=== PATIENT | male | born 1940 | race African-American/Black ===

== ENCOUNTER 2019-10-13 01:36 | Inpatient (IN) | payer MEDICARE ==
[~2019-10-13] VITALS: Ht 175.3 cm; Wt 98.4 kg
[2019-10-13] VITALS (14 sets, daily range): BP systolic 101–133; BP diastolic 56–102
[~2019-10-13 01:36] MED LIST: ALLO100T PO; AMLO10TA80 PO; FURO20TA4 PO; LISI10TA5 PO; PANT40TA4 PO; POTA20TA12 PO; SIMV-43 PO
[2019-10-13 02:31] LABS: BASOPHILS % 0.5 % (0.0-2.0); EOSINOPHILS % 2.6 % (0.0-5.0); HEMATOCRIT. 40.1 % (42.0-52.0); HEMOGLOBIN. 12.8 g/dL (14.0-18.0); LYMPHOCYTES % 24.4 % (20.0-50.0); MEAN CORPUSCULAR HEMOGLOBIN 28.1 pg (28.0-32.0); MEAN CORPUSCULAR VOLUME 87.8 fL (80.0-94.0); MEAN PLATELET VOLUME 8.5 fl (7.4-10.4); MONOCYTES % 10.1 % (2.0-8.0); NEUTROPHILS % 62.4 % (40.0-76.0); PLATELET 153 x1000/uL (130-400); RED BLOOD CELL COUNT 4.56 mill/uL (4.7-6.1); RED CELL DISTRIBUTION WIDTH 15.9 % (11.6-14.6)
[2019-10-13 02:34] LABS: CHLORIDE 107 mEq/L (98-107)
[2019-10-13 02:39] LABS: INR 1.2; PARTIAL THROMBOPLASTIN TIME 25.5 sec (23.4-31.0); PROTHROMBIN TIME 12.8 sec (9.6-11.0)
[2019-10-13] MEDS ORDERED: FAMOTIDINE 20MG/2ML VIAL IV ONE (04:15)
[2019-10-13 05:58] LABS: CLARITY URINE CLOUDY (CLEAR); COLOR URINE YELLOW (YELLOW); KETONES URINE NEGATIVE (NEGATIVE); LEUKOCYTE ESTERASE URINE 3+ (NEGATIVE); NITRITE URINE POSITIVE (NEGATIVE); OCCULT BLOOD URINE 2+ (NEGATIVE); PH URINE 5.5 (4.5-8.0); PROTEIN URINE 2+ (NEGATIVE); SPECIFIC GRAVITY URINE 1.019 (1.005-1.030); UROBILINOGEN URINE 0.2 E.U./dL (0.2-1.0)
[2019-10-13] MEDS ORDERED: HYDROCODONE/ACETAMINOPHEN 10/325MG TABLET PO PRN (07:45)
[2019-10-13] MEDS ORDERED: MAGNESIUM/ALUMINUM HYDROXIDE/SIMETHICONE 30ML UDC PO PRN (07:45)
[2019-10-13] MEDS ORDERED: IPRATROPIUM/ALBUTEROL 0.5-3(2.5)MG/3ML NEB HHN PRN (07:45)
[2019-10-13] MEDS ORDERED: LEVOFLOXACIN 500MG PREMIX 100 ML IV SCH ×3 (07:45→11:00)
[2019-10-13] MEDS ORDERED: GUAIFENESIN 200MG/10ML SUGAR FREE UDC PO PRN (07:45)
[2019-10-13] MEDS ORDERED: HYDRALAZINE 20MG/ML VIAL IV PRN (07:45)
[2019-10-13] MEDS ORDERED: MORPHINE SULFATE 2 MG/ML CPJ (NOT FOR IM USE) IV PRN (07:45)
[2019-10-13] MEDS ORDERED: CLONIDINE 0.1MG TABLET PO PRN (07:45)
[2019-10-13] MEDS ORDERED: DOCUSATE SODIUM 100MG CAPSULE PO PRN (07:45)
[2019-10-13] MEDS ORDERED: DIPHENHYDRAMINE 50MG/ML VIAL IV PRN (07:45)
[2019-10-13] MEDS ORDERED: LORAZEPAM 2MG/ML CPJ IV PRN (07:45)
[2019-10-13] MEDS ORDERED: ONDANSETRON HCL 4MG/2ML INJ IV PRN (07:45)
[2019-10-13] MEDS ORDERED: SODIUM CHLORIDE 0.45% 1,000 ML IV SCH (08:00)
[2019-10-13] MEDS ORDERED: METRONIDAZOLE 500 MG PREMIX 100 ML IV SCH (08:00)
[2019-10-13] MEDS ORDERED: HEPARIN 1000 UNITS/ML 10ML ONE (09:56)
[2019-10-13 14:20] LABS: T4 FREE 1.17 ng/dL (0.76-1.46)
[2019-10-13] MEDS: SODIUM CHLORIDE 0.9% INJ 3ML FLUSH IVF SCH ×2 (15:32→23:48)
[2019-10-13] MEDS: METRONIDAZOLE 500 MG PREMIX 100 ML IV SCH ×2 (15:32→18:00)
[2019-10-13] MEDS: LEVOFLOXACIN 250MG PREMIX 50 ML IV SCH (15:33)
[2019-10-13] MEDS: DEXT 5%/0.45% NACL 1000ML 1,000 ML IV SCH ×2 (15:36→23:48)
[2019-10-13 15:52] LABS: HEMATOCRIT 30.7 % (42.0-52.0); HEMOGLOBIN 9.9 g/dL (14.0-18.0)
[2019-10-13 16:15] LABS: CREATINE KINASE 92 IU/L (39-308)
[2019-10-13 16:18] LABS: CREATINE KINASE MB FRACTION 2.1 ng/mL (0.5-3.6)
[2019-10-13 17:56] LABS: TOTAL IRON BINDING CAPACITY 345 ug/dL (250-450)
[2019-10-13 18:34] LABS: FOLIC ACID (FOLATE) SERUM 10.6 ng/mL (>5.38)
[2019-10-14] VITALS (19 sets, daily range): BP systolic 105–147; BP diastolic 62–97
[2019-10-14 00:35] LABS: HEMATOCRIT 29.8 % (42.0-52.0); HEMOGLOBIN 10.1 g/dL (14.0-18.0)
[2019-10-14] MEDS: METRONIDAZOLE 500 MG PREMIX 100 ML IV SCH ×3 (02:16→17:46)
[2019-10-14 06:15] LABS: BASOPHILS % 0.3 % (0.0-2.0); EOSINOPHILS % 0.3 % (0.0-5.0); HEMATOCRIT. 28.5 % (42.0-52.0); HEMOGLOBIN. 9.4 g/dL (14.0-18.0); MEAN CORPUSCULAR HEMOGLOBIN 28.4 pg (28.0-32.0); MEAN CORPUSCULAR VOLUME 85.9 fL (80.0-94.0); MEAN PLATELET VOLUME 8.8 fl (7.4-10.4); MONOCYTES % 12.2 % (2.0-8.0); NEUTROPHILS % 74.2 % (40.0-76.0); PLATELET 87 x1000/uL (130-400); RED BLOOD CELL COUNT 3.32 mill/uL (4.7-6.1); RED CELL DISTRIBUTION WIDTH 15.9 % (11.6-14.6)
[2019-10-14 06:50] LABS: CHLORIDE 115 mEq/L (98-107)
[2019-10-14 06:57] LABS: CREATINE KINASE 125 IU/L (39-308)
[2019-10-14 07:00] LABS: CREATINE KINASE MB FRACTION 3.3 ng/mL (0.5-3.6)
[2019-10-14] MEDS: LEVOFLOXACIN 250MG PREMIX 50 ML IV SCH (10:07)
[2019-10-14] MEDS: SODIUM CHLORIDE 0.9% INJ 3ML FLUSH IVF SCH ×3 (10:08→22:00)
[2019-10-14] MEDS ORDERED: LEVOFLOXACIN 250MG PREMIX 50 ML IV SCH (11:00)
[2019-10-14 11:20] LABS: *AMPHETAMINES SCREEN URINE NEGATIVE (NEGATIVE); *BARBITURATES SCREEN URINE NEGATIVE (NEGATIVE); *COCAINE SCREEN URINE NEGATIVE (NEGATIVE); METHADONE URINE SCREEN NEGATIVE (NEGATIVE); OPIATES URINE SCREEN NEGATIVE (NEGATIVE)
[2019-10-14 11:21] LABS: CANNABINOID URINE SCREEN PRESUMTIVE POSITIVE (NEGATIVE); PHENCYCLIDINE URINE SCREEN NEGATIVE (NEGATIVE)
[2019-10-14 11:22] LABS: *BENZODIAZEPINES SCREEN URINE NEGATIVE (NEGATIVE)
[2019-10-14 12:31] LABS: HEMATOCRIT 24.6 % (42.0-52.0); HEMOGLOBIN 8.1 g/dL (14.0-18.0)
[2019-10-14] MEDS: DEXT 5%/0.45% NACL 1000ML 1,000 ML IV SCH (14:01)
[2019-10-14] MEDS ORDERED: CALCIUM GLUCONATE 1,000 MG in DEXT 5% WATER 90 ML IV NR (15:30)
[2019-10-14 15:52] LABS: BG BASE EXCESS -2.1 mmol/L (-2.0-2.0); BG CARBOXYHEMOGLOBIN 1.1 % (0.5-1.5); BG DEOXYHEMOGLOBIN 3.9 % (0.0-5.0); BG FRACTION INSPIRED OXYGEN 21; BG HCO3 ACT 22.4 mmol/L (22.0-26.0); BG METHEMOGLOBIN 0.3 % (0.0-1.5); BG OXYHEMOGLOBIN 94.7 % (94.0-97.0); BG PCO2 36.9 mmHg (35.0-45.0); BG PH 7.401 (7.350-7.450); BG PO2 87.2 mmHg (75.0-100.0); BG SAMPLE SITE RIGHT RADIAL; BG TOTAL HEMOGLOBIN 8.2 g/dL (12.0-18.0); BG VENT MODE ROOM AIR
[2019-10-14 20:29] LABS: HEMATOCRIT 24.9 % (42.0-52.0); HEMOGLOBIN 8.3 g/dL (14.0-18.0)
[2019-10-15] VITALS (12 sets, daily range): BP systolic 113–158; BP diastolic 70–89
[2019-10-15 01:30] LABS: HEMATOCRIT 28.5 % (42.0-52.0); HEMOGLOBIN 9.5 g/dL (14.0-18.0)
[2019-10-15] MEDS: METRONIDAZOLE 500 MG PREMIX 100 ML IV SCH ×3 (02:39→17:54)
[2019-10-15] MEDS: SODIUM CHLORIDE 0.9% INJ 3ML FLUSH IVF SCH ×3 (06:32→20:56)
[2019-10-15 07:20] LABS: BASOPHILS % 0.3 % (0.0-2.0); EOSINOPHILS % 1.5 % (0.0-5.0); HEMATOCRIT. 28.2 % (42.0-52.0); HEMOGLOBIN. 9.3 g/dL (14.0-18.0); LYMPHOCYTES % 17.9 % (20.0-50.0); MEAN CORPUSCULAR HEMOGLOBIN 28.5 pg (28.0-32.0); MEAN CORPUSCULAR VOLUME 86.1 fL (80.0-94.0); MONOCYTES % 12.2 % (2.0-8.0); NEUTROPHILS % 68.1 % (40.0-76.0); RED BLOOD CELL COUNT 3.27 mill/uL (4.7-6.1); RED CELL DISTRIBUTION WIDTH 16.6 % (11.6-14.6)
[2019-10-15 07:23] LABS: INR 1.3; PROTHROMBIN TIME 13.5 sec (9.6-11.0)
[2019-10-15 10:00] LABS: PLATELET ESTIMATE DECREASED
[2019-10-15 10:01] LABS: MEAN PLATELET VOLUME 8.7 fl (7.4-10.4); PLATELET 69 x1000/uL (130-400)
[2019-10-15] MEDS: LEVOFLOXACIN 250MG PREMIX 50 ML IV SCH (11:53)
[2019-10-15 13:12] LABS: HEMATOCRIT 29.1 % (42.0-52.0); HEMOGLOBIN 9.8 g/dL (14.0-18.0)
[2019-10-15] MEDS: DEXT 5%/0.45% NACL 1000ML 1,000 ML IV SCH ×2 (14:10→20:56)
[2019-10-15 19:54] LABS: HEMATOCRIT 26.8 % (42.0-52.0); HEMOGLOBIN 8.9 g/dL (14.0-18.0)
[2019-10-16] VITALS (12 sets, daily range): BP systolic 109–155; BP diastolic 67–95
[2019-10-16 01:08] LABS: HEMATOCRIT 25.5 % (42.0-52.0); HEMOGLOBIN 8.6 g/dL (14.0-18.0)
[2019-10-16] MEDS: METRONIDAZOLE 500 MG PREMIX 100 ML IV SCH ×4 (02:31→20:08)
[2019-10-16] MEDS: SODIUM CHLORIDE 0.9% INJ 3ML FLUSH IVF SCH ×3 (05:31→20:10)
[2019-10-16] MEDS: DEXT 5%/0.45% NACL 1000ML 1,000 ML IV SCH ×3 (06:42→20:09)
[2019-10-16 07:10] LABS: BASOPHILS % 0.3 % (0.0-2.0); EOSINOPHILS % 1.6 % (0.0-5.0); HEMATOCRIT. 24.8 % (42.0-52.0); HEMOGLOBIN. 8.2 g/dL (14.0-18.0); LYMPHOCYTES % 17.4 % (20.0-50.0); MEAN CORPUSCULAR HEMOGLOBIN 28.8 pg (28.0-32.0); MEAN CORPUSCULAR VOLUME 86.7 fL (80.0-94.0); MEAN PLATELET VOLUME 8.8 fl (7.4-10.4); MONOCYTES % 12.5 % (2.0-8.0); NEUTROPHILS % 68.2 % (40.0-76.0); PLATELET 81 x1000/uL (130-400); RED BLOOD CELL COUNT 2.87 mill/uL (4.7-6.1); RED CELL DISTRIBUTION WIDTH 16.2 % (11.6-14.6)
[2019-10-16] MEDS: LEVOFLOXACIN 250MG PREMIX 50 ML IV SCH ×2 (11:00→11:55)
[2019-10-16 11:25] LABS: HEMATOCRIT 25.9 % (42.0-52.0); HEMOGLOBIN 8.7 g/dL (14.0-18.0)
[2019-10-16 18:42] LABS: HEMATOCRIT 25.8 % (42.0-52.0); HEMOGLOBIN 8.5 g/dL (14.0-18.0)
[2019-10-16] MEDS ORDERED: IOHEXOL-350 100 ML BOTTLE ONE (23:08)
[2019-10-17] VITALS (12 sets, daily range): BP systolic 116–158; BP diastolic 75–97
[2019-10-17 00:54] LABS: HEMATOCRIT 24.9 % (42.0-52.0); HEMOGLOBIN 8.3 g/dL (14.0-18.0)
[2019-10-17] MEDS: METRONIDAZOLE 500 MG PREMIX 100 ML IV SCH ×3 (02:40→18:22)
[2019-10-17 05:59] LABS: HEMATOCRIT 24.8 % (42.0-52.0); HEMOGLOBIN 8.3 g/dL (14.0-18.0)
[2019-10-17] MEDS: SODIUM CHLORIDE 0.9% INJ 3ML FLUSH IVF SCH ×3 (06:33→22:00)
[2019-10-17] MEDS: LEVOFLOXACIN 250MG PREMIX 50 ML IV SCH (10:26)
[2019-10-17] MEDS: ACETAMINOPHEN 325MG TABLET PO PRN (10:26)
[2019-10-17] MEDS: DEXT 5%/0.45% NACL 1000ML 1,000 ML IV SCH (12:14)
[2019-10-17 13:20] LABS: HEMOGLOBIN 8.3 g/dL (14.0-18.0)
[2019-10-17 16:18] LABS: HEMATOCRIT 25.1 % (42.0-52.0); HEMOGLOBIN 8.3 g/dL (14.0-18.0)
[2019-10-17 19:38] LABS: HEMATOCRIT 26.2 % (42.0-52.0); HEMOGLOBIN 8.6 g/dL (14.0-18.0)
[2019-10-18] VITALS (14 sets, daily range): BP systolic 107–166; BP diastolic 26–99
[2019-10-18] MEDS: DEXT 5%/0.45% NACL 1000ML 1,000 ML IV SCH ×2 (01:25→13:32)
[2019-10-18] MEDS: SODIUM CHLORIDE 0.9% INJ 3ML FLUSH IVF SCH ×3 (06:31→21:28)
[2019-10-18 10:46] LABS: HEMATOCRIT 24.8 % (42.0-52.0); HEMOGLOBIN 8.2 g/dL (14.0-18.0)
[2019-10-18] MEDS: ACETAMINOPHEN 325MG TABLET PO PRN (18:04)
[2019-10-19] VITALS (13 sets, daily range): BP systolic 128–158; BP diastolic 76–102
[2019-10-19] MEDS: DEXT 5%/0.45% NACL 1000ML 1,000 ML IV SCH ×2 (03:48→17:52)
[2019-10-19] MEDS: SODIUM CHLORIDE 0.9% INJ 3ML FLUSH IVF SCH ×2 (06:32→13:58)
[2019-10-19 06:52] LABS: HEMATOCRIT 24.4 % (42.0-52.0); HEMOGLOBIN 8.2 g/dL (14.0-18.0)
[2019-10-19] MEDS: DOCUSATE SODIUM SUGAR FREE 100MG/10ML UDC PO SCH ×2 (11:02→17:00)
[2019-12-01] MEDS ORDERED: TOPUD PO (02:27)
[2019-12-01] MEDS ORDERED: ONDA4TAB5 MT (02:27)
[2019-12-01] MEDS ORDERED: ASPI-1497 PO (02:27)
[2019-12-01] MEDS ORDERED: FAMO20TA8 MT (02:27)
[2019-12-01] MEDS ORDERED: ATOR40TA70 MT (02:27)
[2019-12-01] MEDS ORDERED: MOM MT (02:27)
[2019-12-01] MEDS ORDERED: BISA10SU62 RC (02:27)
== END 2019-10-19 21:05 | disposition home health service (06) | DRG 871 ==
LOC: ER 01:36 → 5EST 03:23 → ENRESERV 07:20 → 5EST 10-18 17:32
PROVIDERS: ADMIT Internal Medicine; ATTEND Internal Medicine
PROC: 30233N1 Transfusion of Nonautologous Red Blood Cells into Peripheral Vein, Percutaneous Approach (ICD-10-PCS; principal; 2019-10-13)
DX: A41.51 Sepsis due to Escherichia coli [E. coli] (principal); K57.31 Diverticulosis of large intestine without perforation or abscess with bleeding; I69.351 Hemiplegia and hemiparesis following cerebral infarction affecting right dominant side; J98.11 Atelectasis; N17.9 Acute kidney failure, unspecified; N39.0 Urinary tract infection, site not specified; I74.5 Embolism and thrombosis of iliac artery; I74.3 Embolism and thrombosis of arteries of the lower extremities; D64.9 Anemia, unspecified; E78.5 Hyperlipidemia, unspecified; I13.10 Hypertensive heart and chronic kidney disease without heart failure, with stage 1 through stage 4 chronic kidney disease, or unspecified chronic kidney disease; I73.9 Peripheral vascular disease, unspecified; I71.4 Abdominal aortic aneurysm, without rupture; I71.2 Thoracic aortic aneurysm, without rupture; I72.3 Aneurysm of iliac artery; I72.4 Aneurysm of artery of lower extremity; I25.10 Atherosclerotic heart disease of native coronary artery without angina pectoris; K80.20 Calculus of gallbladder without cholecystitis without obstruction; N28.89 Other specified disorders of kidney and ureter; R91.1 Solitary pulmonary nodule; N20.0 Calculus of kidney; E83.51 Hypocalcemia; F03.90 Unspecified dementia, unspecified severity, without behavioral disturbance, psychotic disturbance, mood disturbance, and anxiety; Z86.79 Personal history of other diseases of the circulatory system; N18.9 Chronic kidney disease, unspecified; Z87.891 Personal history of nicotine dependence; Z79.899 Other long term (current) drug therapy
CPT/HCPCS: 36415; 36600; 71045; 74174; 78278; 80048; 80053; 80061; 80305; 81003; 82270; 82375; 82550; 82553; 82607; 82728; 82746; 82805; 83036; 83540; 83550; 83735; 83880; 84439; 84443; 84484; 85014; 85018; 85025; 85379; 85651; 86850; 86900; 86920; 87077; 87186; 93005; 93306; 93922; 93970; 99291; A9560; J0610; J1644; J1956; J2270; J3490; J7060; P9016; Q9967

== ENCOUNTER 2020-03-14 14:25 | Inpatient (IN) | payer MEDICARE, OTHER ==
[~2020-03-14] VITALS: Ht 180.3 cm; Wt 87.5 kg
[~2020-03-14 14:25] MED LIST changes: +ASPI-1497 PO; +ATOR40TA70 MT; +BISA10SU62 RC; +FAMO20TA8 MT; +MOM MT; +ONDA4TAB5 MT; -PANT40TA4 PO; +PANT40TA51 PO; +TOPUD PO
[2020-03-14] MEDS ORDERED: MAGNESIUM/ALUMINUM HYDROXIDE/SIMETHICONE 30ML UDC PO PRN (15:00)
[2020-03-14] MEDS ORDERED: ONDANSETRON HCL 4MG/2ML INJ IV PRN (15:00)
[2020-03-14] MEDS ORDERED: DEXTROSE 50% WATER 50ML SYRINGE IV PRN (15:00)
[2020-03-14 15:35] VITALS: BP 140/81
[2020-03-14] MEDS: BLOOD SUGAR DIAGNOSTIC STRIP TEST SCH ×2 (16:42→21:00)
[2020-03-14] MEDS: HYDROCODONE/ACETAMINOPHEN 5/325MG TABLET PO PRN ×2 (16:43→22:36)
[2020-03-14] MEDS: INSULIN LISPRO 100 UNITS/ML SUBCUT SCH ×2 (16:47→21:00)
[2020-03-14 20:00] VITALS: BP 114/74
[2020-03-14] MEDS: PANTOPRAZOLE SODIUM 40 MG/VIAL IV SCH (22:12)
[2020-03-14] MEDS: IRON SUCROSE COMPLEX 100 MG in SODIUM CHLORIDE 0.9% 100 ML IV SCH (22:12)
[2020-03-15] VITALS: BP 134/77
[2020-03-15 04:00] VITALS: BP 141/90
[2020-03-15] MEDS: HYDROCODONE/ACETAMINOPHEN 5/325MG TABLET PO PRN ×3 (06:40→21:08)
[2020-03-15] MEDS: INSULIN LISPRO 100 UNITS/ML SUBCUT SCH ×4 (07:00→21:00)
[2020-03-15 08:00] VITALS: BP 123/79
[2020-03-15 08:16] LABS: HEMATOCRIT. 24.2 % (42.0-52.0); HEMOGLOBIN. 7.8 g/dL (14.0-18.0); MEAN CORPUSCULAR HEMOGLOBIN 26.9 pg (28.0-32.0); MEAN CORPUSCULAR VOLUME 82.9 fL (80.0-94.0); PLATELET 255 x1000/uL (130-400); RED BLOOD CELL COUNT 2.91 mill/uL (4.7-6.1); RED CELL DISTRIBUTION WIDTH 17.6 % (11.6-14.6)
[2020-03-15] MEDS: BLOOD SUGAR DIAGNOSTIC STRIP TEST SCH ×4 (09:00→21:17)
[2020-03-15] MEDS: PANTOPRAZOLE SODIUM 40 MG/VIAL IV SCH ×2 (09:40→21:08)
[2020-03-15 11:55] VITALS: BP 127/79
[2020-03-15 14:27] LABS: PLATELET ESTIMATE NORMAL
[2020-03-15 16:00] VITALS: BP 126/76
[2020-03-15 20:00] VITALS: BP 136/87
[2020-03-15] MEDS: IRON SUCROSE COMPLEX 100 MG in SODIUM CHLORIDE 0.9% 100 ML IV SCH (21:11)
[2020-03-16] VITALS: BP 126/73
[2020-03-16] MEDS: INSULIN LISPRO 100 UNITS/ML SUBCUT SCH ×4 (06:26→21:00)
[2020-03-16] MEDS: HYDROCODONE/ACETAMINOPHEN 5/325MG TABLET PO PRN ×4 (06:26→21:47)
[2020-03-16] MEDS: BLOOD SUGAR DIAGNOSTIC STRIP TEST SCH ×4 (06:28→21:32)
[2020-03-16 07:31] LABS: CHLORIDE 107 mEq/L (98-107)
[2020-03-16 08:00] VITALS: BP 125/77
[2020-03-16] MEDS: PANTOPRAZOLE SODIUM 40 MG/VIAL IV SCH ×2 (08:35→21:47)
[2020-03-16 11:43] LABS: HEMATOCRIT. 24.2 % (42.0-52.0); HEMOGLOBIN. 7.8 g/dL (14.0-18.0); MEAN CORPUSCULAR HEMOGLOBIN 26.8 pg (28.0-32.0); MEAN CORPUSCULAR VOLUME 82.9 fL (80.0-94.0); MEAN PLATELET VOLUME 7.6 fl (7.4-10.4); PLATELET 281 x1000/uL (130-400); RED BLOOD CELL COUNT 2.92 mill/uL (4.7-6.1); RED CELL DISTRIBUTION WIDTH 17.5 % (11.6-14.6)
[2020-03-16 12:00] VITALS: BP 123/87
[2020-03-16] MEDS: CYANOCOBALAMIN 1000MCG/ML VIAL IM SCH (13:26)
[2020-03-16 16:00] VITALS: BP 125/87
[2020-03-16] MEDS: AMOXICILLIN/POTASSIUM CLAVULANATE 875/125MG TAB PO SCH (16:34)
[2020-03-16 17:25] LABS: PLATELET ESTIMATE NORMAL
[2020-03-16 20:00] VITALS: BP 118/69
[2020-03-16] MEDS: IRON SUCROSE COMPLEX 100 MG in SODIUM CHLORIDE 0.9% 100 ML IV SCH (21:47)
[2020-03-17] VITALS: BP 131/64
[2020-03-17] MEDS: HYDROCODONE/ACETAMINOPHEN 5/325MG TABLET PO PRN ×3 (03:13→21:04)
[2020-03-17 04:00] VITALS: BP 122/62
[2020-03-17] MEDS: INSULIN LISPRO 100 UNITS/ML SUBCUT SCH ×4 (05:38→21:00)
[2020-03-17 07:02] LABS: BASOPHILS % 0.3 % (0.0-2.0); EOSINOPHILS % 1.9 % (0.0-5.0); HEMATOCRIT. 22.3 % (42.0-52.0); HEMOGLOBIN. 7.3 g/dL (14.0-18.0); LYMPHOCYTES % 10.4 % (20.0-50.0); MEAN CORPUSCULAR HEMOGLOBIN 26.7 pg (28.0-32.0); MEAN PLATELET VOLUME 7.6 fl (7.4-10.4); MONOCYTES % 11.8 % (2.0-8.0); NEUTROPHILS % 75.6 % (40.0-76.0); PLATELET 295 x1000/uL (130-400); RED BLOOD CELL COUNT 2.72 mill/uL (4.7-6.1); RED CELL DISTRIBUTION WIDTH 17.5 % (11.6-14.6)
[2020-03-17 07:18] LABS: CHLORIDE 104 mEq/L (98-107)
[2020-03-17 08:29] VITALS: BP 122/76
[2020-03-17] MEDS: AMOXICILLIN/POTASSIUM CLAVULANATE 875/125MG TAB PO SCH ×2 (09:47→20:54)
[2020-03-17] MEDS: CYANOCOBALAMIN 1000MCG/ML VIAL IM SCH (09:47)
[2020-03-17] MEDS: PANTOPRAZOLE SODIUM 40 MG/VIAL IV SCH ×2 (09:47→20:55)
[2020-03-17] MEDS: BLOOD SUGAR DIAGNOSTIC STRIP TEST SCH ×4 (09:48→21:04)
[2020-03-17 12:00] VITALS: BP 121/77
[2020-03-17 16:15] VITALS: BP 153/76
[2020-03-17 20:00] VITALS: BP 136/76
[2020-03-17] MEDS: IRON SUCROSE COMPLEX 100 MG in SODIUM CHLORIDE 0.9% 100 ML IV SCH (20:54)
[2020-03-18] VITALS: BP 119/68
[2020-03-18 04:00] VITALS: BP 129/72
[2020-03-18] MEDS: HYDROCODONE/ACETAMINOPHEN 5/325MG TABLET PO PRN (05:53)
[2020-03-18] MEDS: INSULIN LISPRO 100 UNITS/ML SUBCUT SCH ×4 (06:57→21:00)
[2020-03-18 08:00] VITALS: BP 124/75
[2020-03-18] MEDS: CYANOCOBALAMIN 1000MCG/ML VIAL IM SCH (09:17)
[2020-03-18] MEDS: PANTOPRAZOLE SODIUM 40 MG/VIAL IV SCH ×2 (09:17→22:18)
[2020-03-18] MEDS: AMOXICILLIN/POTASSIUM CLAVULANATE 875/125MG TAB PO SCH (09:17)
[2020-03-18] MEDS: BLOOD SUGAR DIAGNOSTIC STRIP TEST SCH ×4 (09:17→21:00)
[2020-03-18] MEDS: TRAMADOL 50MG TABLET PO PRN ×2 (09:50→22:21)
[2020-03-18] MEDS ORDERED: MORPHINE SULFATE 2 MG/ML CPJ (NOT FOR IM USE) IV PRN (11:00)
[2020-03-18 12:00] VITALS: BP 121/78
[2020-03-18 16:02] VITALS: BP 127/78
[2020-03-18] MEDS ORDERED: VANCOMYCIN 1250MG in DEXTROSE 5% WATER 250ML IV SCH (18:00)
[2020-03-18 20:00] VITALS: BP 135/76
[2020-03-19] VITALS: BP 123/76
[2020-03-19 04:00] VITALS: BP 122/78
[2020-03-19] MEDS: BLOOD SUGAR DIAGNOSTIC STRIP TEST SCH ×4 (06:05→20:36)
[2020-03-19] MEDS: INSULIN LISPRO 100 UNITS/ML SUBCUT SCH ×4 (06:05→20:36)
[2020-03-19 08:00] VITALS: BP 140/88
[2020-03-19] MEDS: PANTOPRAZOLE SODIUM 40 MG/VIAL IV SCH ×2 (08:33→20:36)
[2020-03-19] MEDS: CYANOCOBALAMIN 1000MCG/ML VIAL IM SCH (08:33)
[2020-03-19] MEDS: HYDROCODONE/ACETAMINOPHEN 5/325MG TABLET PO PRN (08:33)
[2020-03-19 12:02] VITALS: BP 120/70
[2020-03-19] MEDS: VANCOMYCIN 1 G PREMIX 200 ML IV SCH (13:41)
[2020-03-19 16:00] VITALS: BP 128/79
[2020-03-19] MEDS: TRAMADOL 50MG TABLET PO PRN (18:01)
[2020-03-19 20:00] VITALS: BP 176/97
[2020-03-20] VITALS: BP 131/79
[2020-03-20 04:00] VITALS: BP 141/91
[2020-03-20] MEDS: ACETAMINOPHEN 325MG TABLET PO PRN (06:05)
[2020-03-20] MEDS: BLOOD SUGAR DIAGNOSTIC STRIP TEST SCH ×4 (06:12→21:00)
[2020-03-20] MEDS: INSULIN LISPRO 100 UNITS/ML SUBCUT SCH ×4 (06:13→21:00)
[2020-03-20] MEDS: VANCOMYCIN 1 G PREMIX 200 ML IV SCH (06:17)
[2020-03-20 06:48] LABS: BASOPHILS % 0.3 % (0.0-2.0); EOSINOPHILS % 2.6 % (0.0-5.0); HEMATOCRIT. 24.2 % (42.0-52.0); HEMOGLOBIN. 7.7 g/dL (14.0-18.0); LYMPHOCYTES % 12.4 % (20.0-50.0); MEAN CORPUSCULAR HEMOGLOBIN 26.8 pg (28.0-32.0); MEAN CORPUSCULAR VOLUME 84.5 fL (80.0-94.0); MEAN PLATELET VOLUME 7.7 fl (7.4-10.4); MONOCYTES % 11.8 % (2.0-8.0); NEUTROPHILS % 72.9 % (40.0-76.0); PLATELET 291 x1000/uL (130-400); RED BLOOD CELL COUNT 2.87 mill/uL (4.7-6.1); RED CELL DISTRIBUTION WIDTH 18.5 % (11.6-14.6)
[2020-03-20 07:03] LABS: CHLORIDE 104 mEq/L (98-107)
[2020-03-20 08:22] VITALS: BP 171/91
[2020-03-20] MEDS: PANTOPRAZOLE SODIUM 40 MG/VIAL IV SCH ×2 (09:09→21:00)
[2020-03-20] MEDS: TRAMADOL 50MG TABLET PO PRN ×2 (09:10→16:29)
[2020-03-20] MEDS: CYANOCOBALAMIN 1000MCG/ML VIAL IM SCH (09:10)
[2020-03-20] MEDS: CLONIDINE 0.1MG TABLET PO PRN (09:11)
[2020-03-20 20:00] VITALS: BP 137/92
[2020-03-21] VITALS: BP 149/87
[2020-03-21] MEDS: VANCOMYCIN 1 G PREMIX 200 ML IV SCH ×2 (03:02→18:14)
[2020-03-21 04:00] VITALS: BP 165/84
[2020-03-21] MEDS: BLOOD SUGAR DIAGNOSTIC STRIP TEST SCH ×4 (05:54→21:07)
[2020-03-21] MEDS: INSULIN LISPRO 100 UNITS/ML SUBCUT SCH ×4 (07:00→21:00)
[2020-03-21 08:29] VITALS: BP 143/95
[2020-03-21 08:37] LABS: BASOPHILS % 0.3 % (0.0-2.0); EOSINOPHILS % 2.3 % (0.0-5.0); HEMATOCRIT. 27.4 % (42.0-52.0); HEMOGLOBIN. 8.4 g/dL (14.0-18.0); LYMPHOCYTES % 9.9 % (20.0-50.0); MEAN CORPUSCULAR HEMOGLOBIN 25.9 pg (28.0-32.0); MEAN CORPUSCULAR VOLUME 84.3 fL (80.0-94.0); MEAN PLATELET VOLUME 7.8 fl (7.4-10.4); MONOCYTES % 9.8 % (2.0-8.0); NEUTROPHILS % 77.7 % (40.0-76.0); PLATELET 335 x1000/uL (130-400); RED BLOOD CELL COUNT 3.25 mill/uL (4.7-6.1); RED CELL DISTRIBUTION WIDTH 18.5 % (11.6-14.6)
[2020-03-21 08:38] LABS: CHLORIDE 102 mEq/L (98-107)
[2020-03-21] MEDS: PANTOPRAZOLE SODIUM 40 MG/VIAL IV SCH ×2 (08:41→22:11)
[2020-03-21] MEDS: CYANOCOBALAMIN 1000MCG/ML VIAL IM SCH (08:41)
[2020-03-21] MEDS: TRAMADOL 50MG TABLET PO PRN (11:19)
[2020-03-21 17:06] LABS: 25-HYDROXY VITAMIN D3 8.2 ng/mL (.)
[2020-03-21 20:00] VITALS: BP 177/99
[2020-03-22] VITALS: BP 194/99
[2020-03-22 04:00] VITALS: BP 146/85
[2020-03-22] MEDS: INSULIN LISPRO 100 UNITS/ML SUBCUT SCH ×4 (07:00→21:00)
[2020-03-22 08:00] VITALS: BP 140/79
[2020-03-22] MEDS: BLOOD SUGAR DIAGNOSTIC STRIP TEST SCH ×4 (09:00→20:46)
[2020-03-22] MEDS: TRAMADOL 50MG TABLET PO PRN ×2 (09:42→18:15)
[2020-03-22] MEDS: CYANOCOBALAMIN 1000MCG/ML VIAL IM SCH (09:42)
[2020-03-22] MEDS: PANTOPRAZOLE SODIUM 40 MG/VIAL IV SCH ×2 (10:23→20:46)
[2020-03-22] MEDS: VANCOMYCIN 1 G PREMIX 200 ML IV SCH (11:54)
[2020-03-22 12:00] VITALS: BP 123/77
[2020-03-22 16:00] VITALS: BP 136/90
[2020-03-22] MEDS: MORPHINE SULFATE 2 MG/ML CPJ (NOT FOR IM USE) IV PRN (16:22)
[2020-03-22] MEDS: ERGOCALCIFEROL 50000UNITS CAPSULE PO SCH (17:45)
[2020-03-22 20:00] VITALS: BP 156/85
[2020-03-23] VITALS: BP 131/87
[2020-03-23] MEDS: TRAMADOL 50MG TABLET PO PRN ×2 (00:28→06:57)
[2020-03-23 04:00] VITALS: BP 136/82
[2020-03-23] MEDS: VANCOMYCIN 1 G PREMIX 200 ML IV SCH (05:25)
[2020-03-23] MEDS: INSULIN LISPRO 100 UNITS/ML SUBCUT SCH ×4 (05:38→21:00)
[2020-03-23] MEDS: BLOOD SUGAR DIAGNOSTIC STRIP TEST SCH ×4 (05:41→21:51)
[2020-03-23 08:00] VITALS: BP 147/81
[2020-03-23 12:06] VITALS: BP 139/89
[2020-03-23 16:00] VITALS: BP 152/89
[2020-03-23] MEDS: PANTOPRAZOLE SODIUM 40 MG/VIAL IV SCH ×2 (17:44→21:50)
[2020-03-23 20:00] VITALS: BP 136/85
[2020-03-23] MEDS: MORPHINE SULFATE 2 MG/ML CPJ (NOT FOR IM USE) IV PRN (21:50)
[2020-03-24 04:00] VITALS: BP 141/92
[2020-03-24] MEDS: BLOOD SUGAR DIAGNOSTIC STRIP TEST SCH ×4 (06:20→21:00)
[2020-03-24] MEDS: INSULIN LISPRO 100 UNITS/ML SUBCUT SCH ×4 (06:20→21:00)
[2020-03-24 08:00] VITALS: BP 132/89
[2020-03-24 08:24] LABS: BASOPHILS % 0.2 % (0.0-2.0); EOSINOPHILS % 1.1 % (0.0-5.0); HEMATOCRIT. 26.4 % (42.0-52.0); HEMOGLOBIN. 8.4 g/dL (14.0-18.0); LYMPHOCYTES % 8.7 % (20.0-50.0); MEAN CORPUSCULAR HEMOGLOBIN 26.5 pg (28.0-32.0); MEAN CORPUSCULAR VOLUME 83.4 fL (80.0-94.0); MEAN PLATELET VOLUME 7.7 fl (7.4-10.4); MONOCYTES % 8.5 % (2.0-8.0); NEUTROPHILS % 81.5 % (40.0-76.0); PLATELET 332 x1000/uL (130-400); RED BLOOD CELL COUNT 3.17 mill/uL (4.7-6.1); RED CELL DISTRIBUTION WIDTH 19.3 % (11.6-14.6)
[2020-03-24] MEDS: PANTOPRAZOLE SODIUM 40 MG/VIAL IV SCH ×2 (08:41→22:12)
[2020-03-24 09:29] LABS: CHLORIDE 102 mEq/L (98-107)
[2020-03-24] MEDS ORDERED: HYDROCODONE/ACETAMINOPHEN 5/325MG TABLET PO PRN (10:45)
[2020-03-24 12:00] VITALS: BP 144/82
[2020-03-24 16:00] VITALS: BP 122/81
[2020-03-24 20:00] VITALS: BP 167/99
[2020-03-24] MEDS: MORPHINE SULFATE 2 MG/ML CPJ (NOT FOR IM USE) IV PRN (22:13)
[2020-03-25] VITALS: BP 162/100
[2020-03-25 04:00] VITALS: BP 147/87
[2020-03-25] MEDS: INSULIN LISPRO 100 UNITS/ML SUBCUT SCH ×4 (07:10→21:00)
[2020-03-25 08:07] VITALS: BP 139/96
[2020-03-25] MEDS: BLOOD SUGAR DIAGNOSTIC STRIP TEST SCH ×4 (09:26→21:16)
[2020-03-25] MEDS: PANTOPRAZOLE SODIUM 40 MG/VIAL IV SCH ×2 (09:27→21:16)
[2020-03-25] MEDS: TRAMADOL 50MG TABLET PO PRN (09:31)
[2020-03-25 20:00] VITALS: BP 154/81
[2020-03-25 22:00] VITALS: BP 154/81
[2020-03-26] VITALS: BP 136/96
[2020-03-26 04:00] VITALS: BP 145/93
[2020-03-26] MEDS: INSULIN LISPRO 100 UNITS/ML SUBCUT SCH ×4 (07:00→21:00)
[2020-03-26] MEDS: BLOOD SUGAR DIAGNOSTIC STRIP TEST SCH ×4 (07:23→21:16)
[2020-03-26 08:00] VITALS: BP 146/92
[2020-03-26] MEDS: TRAMADOL 50MG TABLET PO PRN ×3 (09:06→21:08)
[2020-03-26] MEDS: PANTOPRAZOLE SODIUM 40 MG/VIAL IV SCH ×2 (09:06→21:07)
[2020-03-26 20:00] VITALS: BP 143/88
[2020-03-27] VITALS: BP 133/99
[2020-03-27 04:00] VITALS: BP 132/91
[2020-03-27] MEDS: INSULIN LISPRO 100 UNITS/ML SUBCUT SCH ×4 (07:00→21:00)
[2020-03-27] MEDS: BLOOD SUGAR DIAGNOSTIC STRIP TEST SCH ×4 (07:02→21:25)
[2020-03-27 08:00] VITALS: BP 162/99
[2020-03-27] MEDS: CLONIDINE 0.1MG TABLET PO PRN (08:16)
[2020-03-27] MEDS: PANTOPRAZOLE SODIUM 40 MG/VIAL IV SCH ×2 (08:16→20:54)
[2020-03-27] MEDS: TRAMADOL 50MG TABLET PO PRN (08:17)
[2020-03-27 12:00] VITALS: BP 109/76
[2020-03-27 16:00] VITALS: BP 131/83
[2020-03-27 20:00] VITALS: BP 126/88
[2020-03-28] VITALS: BP 130/87
[2020-03-28 04:00] VITALS: BP 129/81
[2020-03-28] MEDS: INSULIN LISPRO 100 UNITS/ML SUBCUT SCH ×4 (06:09→21:00)
[2020-03-28 07:23] LABS: HEMATOCRIT. 27.4 % (42.0-52.0); HEMOGLOBIN. 8.7 g/dL (14.0-18.0); MEAN CORPUSCULAR VOLUME 81.7 fL (80.0-94.0); MEAN PLATELET VOLUME 7.4 fl (7.4-10.4); PLATELET 331 x1000/uL (130-400); RED BLOOD CELL COUNT 3.35 mill/uL (4.7-6.1); RED CELL DISTRIBUTION WIDTH 18.7 % (11.6-14.6)
[2020-03-28 07:54] VITALS: BP 124/89
[2020-03-28 07:57] LABS: CHLORIDE 101 mEq/L (98-107)
[2020-03-28] MEDS: PANTOPRAZOLE SODIUM 40 MG/VIAL IV SCH (08:27)
[2020-03-28] MEDS: BLOOD SUGAR DIAGNOSTIC STRIP TEST SCH ×4 (08:34→21:29)
[2020-03-28] MEDS: LACTULOSE 20G/30ML UDC PO SCH ×4 (09:44→21:00)
[2020-03-28 14:10] LABS: PLATELET ESTIMATE NORMAL
[2020-03-28 20:00] VITALS: BP 153/95
[2020-03-28] MEDS: PANTOPRAZOLE 40MG DR TABLET PO SCH (21:30)
[2020-03-28] MEDS ORDERED: TRAMADOL 50MG TABLET PO PRN (23:15)
[2020-03-29] VITALS: BP 135/88
[2020-03-29 04:00] VITALS: BP 141/89
[2020-03-29] MEDS: BLOOD SUGAR DIAGNOSTIC STRIP TEST SCH ×4 (06:24→20:24)
[2020-03-29] MEDS: INSULIN LISPRO 100 UNITS/ML SUBCUT SCH ×4 (06:24→20:24)
[2020-03-29] MEDS: PANTOPRAZOLE 40MG DR TABLET PO SCH ×2 (06:24→16:51)
[2020-03-29 08:00] VITALS: BP 149/89
[2020-03-29] MEDS: ERGOCALCIFEROL 50000UNITS CAPSULE PO SCH (10:08)
[2020-03-29] MEDS: CYANOCOBALAMIN 1000MCG/ML VIAL IM SCH (10:08)
[2020-03-29] MEDS: TRAMADOL 50MG TABLET PO PRN ×2 (10:16→20:29)
[2020-03-29 11:32] LABS: HEMATOCRIT. 27.3 % (42.0-52.0); HEMOGLOBIN. 8.6 g/dL (14.0-18.0); MEAN CORPUSCULAR HEMOGLOBIN 25.7 pg (28.0-32.0); MEAN CORPUSCULAR VOLUME 81.9 fL (80.0-94.0); MEAN PLATELET VOLUME 7.4 fl (7.4-10.4); PLATELET 315 x1000/uL (130-400); RED BLOOD CELL COUNT 3.34 mill/uL (4.7-6.1); RED CELL DISTRIBUTION WIDTH 18.3 % (11.6-14.6)
[2020-03-29 13:53] LABS: PLATELET ESTIMATE NORMAL
[2020-03-30] MEDS: PANTOPRAZOLE 40MG DR TABLET PO SCH ×2 (05:45→17:25)
[2020-03-30] MEDS: BLOOD SUGAR DIAGNOSTIC STRIP TEST SCH ×4 (05:54→21:37)
[2020-03-30] MEDS: INSULIN LISPRO 100 UNITS/ML SUBCUT SCH ×4 (05:54→21:00)
[2020-03-30 08:00] VITALS: BP 153/99
[2020-03-30] MEDS: TRAMADOL 50MG TABLET PO PRN (09:36)
[2020-03-30 20:00] VITALS: BP 138/90
[2020-03-31] VITALS: BP 154/88
[2020-03-31 04:00] VITALS: BP 140/80
[2020-03-31] MEDS: PANTOPRAZOLE 40MG DR TABLET PO SCH ×2 (06:13→17:59)
[2020-03-31] MEDS: INSULIN LISPRO 100 UNITS/ML SUBCUT SCH ×4 (06:29→21:00)
[2020-03-31 07:58] LABS: HEMATOCRIT. 28.1 % (42.0-52.0); HEMOGLOBIN. 8.9 g/dL (14.0-18.0); MEAN CORPUSCULAR HEMOGLOBIN 25.6 pg (28.0-32.0); MEAN CORPUSCULAR VOLUME 81.3 fL (80.0-94.0); MEAN PLATELET VOLUME 7.4 fl (7.4-10.4); PLATELET 314 x1000/uL (130-400); RED BLOOD CELL COUNT 3.46 mill/uL (4.7-6.1); RED CELL DISTRIBUTION WIDTH 18.5 % (11.6-14.6)
[2020-03-31 08:00] VITALS: BP 136/85
[2020-03-31 08:00] LABS: CHLORIDE 101 mEq/L (98-107)
[2020-03-31] MEDS: BLOOD SUGAR DIAGNOSTIC STRIP TEST SCH ×4 (09:00→21:00)
[2020-03-31 12:00] VITALS: BP 119/90
[2020-03-31 15:58] LABS: PLATELET ESTIMATE NORMAL
[2020-03-31 16:00] VITALS: BP 157/95
[2020-03-31 20:00] VITALS: BP 141/90
[2020-04-01] MEDS: PANTOPRAZOLE 40MG DR TABLET PO SCH ×2 (05:31→16:36)
[2020-04-01] MEDS: INSULIN LISPRO 100 UNITS/ML SUBCUT SCH ×4 (06:01→20:47)
[2020-04-01 08:00] VITALS: BP 127/90
[2020-04-01] MEDS: BLOOD SUGAR DIAGNOSTIC STRIP TEST SCH ×4 (08:00→20:47)
[2020-04-01] MEDS: TRAMADOL 50MG TABLET PO PRN ×2 (10:37→16:36)
[2020-04-01 11:59] VITALS: BP 134/84
[2020-04-01 15:59] VITALS: BP 121/79
[2020-04-01 20:00] VITALS: BP 135/84
[2020-04-02] MEDS: PANTOPRAZOLE 40MG DR TABLET PO SCH ×2 (05:24→16:12)
[2020-04-02] MEDS: INSULIN LISPRO 100 UNITS/ML SUBCUT SCH ×4 (06:46→20:31)
[2020-04-02 08:00] VITALS: BP 132/94
[2020-04-02 08:24] LABS: BASOPHILS % 0.4 % (0.0-2.0); EOSINOPHILS % 1.3 % (0.0-5.0); HEMATOCRIT. 28.8 % (42.0-52.0); HEMOGLOBIN. 9.2 g/dL (14.0-18.0); LYMPHOCYTES % 8.2 % (20.0-50.0); MEAN CORPUSCULAR HEMOGLOBIN 25.8 pg (28.0-32.0); MEAN CORPUSCULAR VOLUME 81.1 fL (80.0-94.0); MEAN PLATELET VOLUME 7.5 fl (7.4-10.4); NEUTROPHILS % 80.1 % (40.0-76.0); PLATELET 301 x1000/uL (130-400); RED BLOOD CELL COUNT 3.55 mill/uL (4.7-6.1)
[2020-04-02 09:02] LABS: CHLORIDE 99 mEq/L (98-107)
[2020-04-02] MEDS: BLOOD SUGAR DIAGNOSTIC STRIP TEST SCH ×4 (09:47→20:32)
[2020-04-02] MEDS: TRAMADOL 50MG TABLET PO PRN ×2 (10:56→16:13)
[2020-04-02 11:49] VITALS: BP 134/84
[2020-04-02] MEDS ORDERED: VANCOMYCIN 1,250 MG in DEXT 5% WATER 250 ML IV SCH (13:00)
[2020-04-02 16:11] VITALS: BP 148/88
[2020-04-02 20:00] VITALS: BP 117/83
[2020-04-03] MEDS: VANCOMYCIN 1 G PREMIX 200 ML IV SCH (06:01)
[2020-04-03] MEDS: PANTOPRAZOLE 40MG DR TABLET PO SCH ×2 (06:01→18:04)
[2020-04-03] MEDS: INSULIN LISPRO 100 UNITS/ML SUBCUT SCH ×4 (06:34→21:00)
[2020-04-03] MEDS: BLOOD SUGAR DIAGNOSTIC STRIP TEST SCH ×4 (07:00→21:28)
[2020-04-03 08:00] VITALS: BP 147/86
[2020-04-03] MEDS: ACETAMINOPHEN 325MG TABLET PO PRN (14:26)
[2020-04-03 16:06] VITALS: BP 115/75
[2020-04-03 20:00] VITALS: BP 133/93
[2020-04-04] VITALS: BP 143/90
[2020-04-04] MEDS: VANCOMYCIN 1 G PREMIX 200 ML IV SCH ×2 (00:28→14:09)
[2020-04-04 04:00] VITALS: BP 135/88
[2020-04-04] MEDS: PANTOPRAZOLE 40MG DR TABLET PO SCH ×2 (05:39→17:30)
[2020-04-04] MEDS: INSULIN LISPRO 100 UNITS/ML SUBCUT SCH ×4 (06:41→20:25)
[2020-04-04] MEDS: BLOOD SUGAR DIAGNOSTIC STRIP TEST SCH ×4 (06:41→20:25)
[2020-04-04 08:26] VITALS: BP 130/81
[2020-04-04] MEDS: ACETAMINOPHEN 325MG TABLET PO PRN (09:10)
[2020-04-04 09:45] LABS: CHLORIDE 102 mEq/L (98-107)
[2020-04-04 20:00] VITALS: BP 136/89
[2020-04-04] MEDS: TRAMADOL 50MG TABLET PO PRN (20:46)
[2020-04-05] VITALS: BP 138/78
[2020-04-05] MEDS: VANCOMYCIN 1 G PREMIX 200 ML IV SCH ×2 (00:57→15:57)
[2020-04-05] MEDS: PANTOPRAZOLE 40MG DR TABLET PO SCH ×2 (06:28→18:01)
[2020-04-05] MEDS: INSULIN LISPRO 100 UNITS/ML SUBCUT SCH ×4 (07:40→20:42)
[2020-04-05 08:00] VITALS: BP 131/82
[2020-04-05] MEDS: BLOOD SUGAR DIAGNOSTIC STRIP TEST SCH ×4 (08:58→20:41)
[2020-04-05] MEDS: CYANOCOBALAMIN 1000MCG/ML VIAL IM SCH (09:00)
[2020-04-05] MEDS: ERGOCALCIFEROL 50000UNITS CAPSULE PO SCH (09:00)
[2020-04-05] MEDS: ACETAMINOPHEN 325MG TABLET PO PRN (15:57)
[2020-04-05 20:00] VITALS: BP 152/61
[2020-04-05] MEDS: TRAMADOL 50MG TABLET PO PRN (22:50)
[2020-04-06] VITALS: BP 157/82
[2020-04-06] MEDS: VANCOMYCIN 1 G PREMIX 200 ML IV SCH ×2 (00:32→12:30)
[2020-04-06] MEDS: PANTOPRAZOLE 40MG DR TABLET PO SCH ×2 (06:16→17:31)
[2020-04-06 08:00] VITALS: BP 133/89
[2020-04-06] MEDS: INSULIN LISPRO 100 UNITS/ML SUBCUT SCH ×4 (08:20→21:22)
[2020-04-06] MEDS: BLOOD SUGAR DIAGNOSTIC STRIP TEST SCH ×4 (09:00→20:39)
[2020-04-06 10:25] LABS: CHLORIDE 97 mEq/L (98-107)
[2020-04-06 10:26] LABS: HEMATOCRIT. 28.5 % (42.0-52.0); HEMOGLOBIN. 9.2 g/dL (14.0-18.0); MEAN CORPUSCULAR HEMOGLOBIN 25.6 pg (28.0-32.0); MEAN CORPUSCULAR VOLUME 79.3 fL (80.0-94.0); MEAN PLATELET VOLUME 7.5 fl (7.4-10.4); PLATELET 340 x1000/uL (130-400); RED BLOOD CELL COUNT 3.59 mill/uL (4.7-6.1); RED CELL DISTRIBUTION WIDTH 18.2 % (11.6-14.6)
[2020-04-06 10:31] LABS: PHOSPHORUS 3.7 mg/dL (2.5-4.9)
[2020-04-06] MEDS ORDERED: SODIUM CHLORIDE 0.9% 1,000 ML IV ONE (11:15)
[2020-04-06 12:07] VITALS: BP 131/87
[2020-04-06] MEDS: AMPICILLIN 1,000 MG in SODIUM CHLORIDE 0.9% 50 ML IV SCH ×2 (13:54→20:42)
[2020-04-06 16:05] VITALS: BP 134/92
[2020-04-06 20:00] VITALS: BP 128/82
[2020-04-06 23:32] LABS: PLATELET ESTIMATE NORMAL
[2020-04-07] MEDS: AMPICILLIN 1,000 MG in SODIUM CHLORIDE 0.9% 50 ML IV SCH ×4 (00:30→20:04)
[2020-04-07] MEDS: PANTOPRAZOLE 40MG DR TABLET PO SCH ×2 (06:11→16:27)
[2020-04-07] MEDS: INSULIN LISPRO 100 UNITS/ML SUBCUT SCH ×4 (06:41→20:05)
[2020-04-07 07:46] LABS: CHLORIDE 101 mEq/L (98-107)
[2020-04-07] MEDS ORDERED: VANCOMYCIN 750 MG PREMIX 150 ML IV SCH (08:00)
[2020-04-07 08:10] LABS: BASOPHILS % 0.4 % (0.0-2.0); EOSINOPHILS % 0.9 % (0.0-5.0); HEMATOCRIT. 26.8 % (42.0-52.0); HEMOGLOBIN. 8.7 g/dL (14.0-18.0); LYMPHOCYTES % 8.5 % (20.0-50.0); MEAN CORPUSCULAR HEMOGLOBIN 25.7 pg (28.0-32.0); MEAN CORPUSCULAR VOLUME 79.3 fL (80.0-94.0); MEAN PLATELET VOLUME 7.4 fl (7.4-10.4); MONOCYTES % 12.2 % (2.0-8.0); PLATELET 316 x1000/uL (130-400); RED BLOOD CELL COUNT 3.38 mill/uL (4.7-6.1); RED CELL DISTRIBUTION WIDTH 18.2 % (11.6-14.6)
[2020-04-07 08:16] VITALS: BP 159/96
[2020-04-07] MEDS ORDERED: LIDOCAINE HCL 1% 20ML VIAL (Pyxis) INJ ONE (08:24)
[2020-04-07] MEDS: BLOOD SUGAR DIAGNOSTIC STRIP TEST SCH ×4 (09:00→21:15)
[2020-04-07] MEDS: TRAMADOL 50MG TABLET PO PRN (09:46)
[2020-04-07] MEDS ORDERED: IOHEXOL-350 100 ML BOTTLE ONE (13:33)
[2020-04-07] MEDS: HYDROCODONE/ACETAMINOPHEN 5/325MG TABLET PO PRN (16:41)
[2020-04-07 20:00] VITALS: BP 122/78
[2020-04-08] MEDS: AMPICILLIN 1,000 MG in SODIUM CHLORIDE 0.9% 50 ML IV SCH ×4 (01:06→21:30)
[2020-04-08] MEDS: PANTOPRAZOLE 40MG DR TABLET PO SCH ×2 (05:12→16:25)
[2020-04-08] MEDS: ACETAMINOPHEN 325MG TABLET PO PRN (05:12)
[2020-04-08 05:38] LABS: BASOPHILS % 0.2 % (0.0-2.0); EOSINOPHILS % 1.1 % (0.0-5.0); HEMOGLOBIN. 8.9 g/dL (14.0-18.0); LYMPHOCYTES % 7.6 % (20.0-50.0); MEAN CORPUSCULAR HEMOGLOBIN 25.5 pg (28.0-32.0); MEAN CORPUSCULAR VOLUME 79.9 fL (80.0-94.0); MEAN PLATELET VOLUME 7.4 fl (7.4-10.4); MONOCYTES % 9.6 % (2.0-8.0); NEUTROPHILS % 81.5 % (40.0-76.0); PLATELET 306 x1000/uL (130-400); RED BLOOD CELL COUNT 3.51 mill/uL (4.7-6.1); RED CELL DISTRIBUTION WIDTH 17.9 % (11.6-14.6)
[2020-04-08 06:01] LABS: CHLORIDE 100 mEq/L (98-107)
[2020-04-08] MEDS: INSULIN LISPRO 100 UNITS/ML SUBCUT SCH ×4 (06:18→21:00)
[2020-04-08] MEDS: BLOOD SUGAR DIAGNOSTIC STRIP TEST SCH ×4 (07:26→21:00)
[2020-04-08 08:00] VITALS: BP 114/76
[2020-04-08 19:00] VITALS: BP 135/89
[2020-04-08] MEDS: HYDROCODONE/ACETAMINOPHEN 5/325MG TABLET PO PRN (19:04)
[2020-04-08 20:00] VITALS: BP 142/92
[2020-04-09] VITALS: BP 118/91
[2020-04-09] MEDS: AMPICILLIN 1,000 MG in SODIUM CHLORIDE 0.9% 50 ML IV SCH ×4 (01:35→18:25)
[2020-04-09 04:00] VITALS: BP 135/87
[2020-04-09] MEDS: PANTOPRAZOLE 40MG DR TABLET PO SCH ×2 (06:38→18:25)
[2020-04-09] MEDS: INSULIN LISPRO 100 UNITS/ML SUBCUT SCH ×4 (07:00→21:00)
[2020-04-09 07:58] VITALS: BP 134/88
[2020-04-09] MEDS: BLOOD SUGAR DIAGNOSTIC STRIP TEST SCH ×4 (08:20→21:30)
[2020-04-09 15:01] LABS: INR 1.1; PROTHROMBIN TIME 11.8 sec (9.6-11.0)
[2020-04-09 20:00] VITALS: BP 127/79
[2020-04-09] MEDS: ACETAMINOPHEN 325MG TABLET PO PRN (21:53)
[2020-04-10] MEDS: AMPICILLIN 1,000 MG in SODIUM CHLORIDE 0.9% 50 ML IV SCH ×4 (01:11→19:48)
[2020-04-10] MEDS: PANTOPRAZOLE 40MG DR TABLET PO SCH ×2 (05:37→17:24)
[2020-04-10] MEDS: BLOOD SUGAR DIAGNOSTIC STRIP TEST SCH ×4 (07:00→20:18)
[2020-04-10] MEDS: INSULIN LISPRO 100 UNITS/ML SUBCUT SCH ×4 (07:00→21:00)
[2020-04-10] MEDS ORDERED: MIDAZOLAM HCL 2 MG/2 ML VIAL ONE (07:33)
[2020-04-10] MEDS ORDERED: FENTANYL CITRATE/PF 50MCG/ML 2ML VIAL ONE (07:33)
[2020-04-10] MEDS ORDERED: PROPOFOL 200MG/20ML VIAL IV ONE (07:33)
[2020-04-10 07:35] VITALS: BP 141/96
[2020-04-10] MEDS ORDERED: LIDOCAINE HCL 1% 20ML VIAL (Pyxis) INJ ONE (07:37)
[2020-04-10] MEDS ORDERED: BACITRACIN 50,000 UNITS/VIAL ONE (07:38)
[2020-04-10] MEDS ORDERED: BUPIVACAINE HCL/PF 0.5% (5MG/ML) 10ML ONE (07:38)
[2020-04-10 08:06] LABS: BASOPHILS % 0.3 % (0.0-2.0); EOSINOPHILS % 1.6 % (0.0-5.0); HEMOGLOBIN. 9.4 g/dL (14.0-18.0); LYMPHOCYTES % 10.6 % (20.0-50.0); MEAN CORPUSCULAR HEMOGLOBIN 25.8 pg (28.0-32.0); MEAN CORPUSCULAR VOLUME 79.6 fL (80.0-94.0); MEAN PLATELET VOLUME 7.5 fl (7.4-10.4); MONOCYTES % 9.3 % (2.0-8.0); NEUTROPHILS % 78.2 % (40.0-76.0); PLATELET 355 x1000/uL (130-400); RED BLOOD CELL COUNT 3.65 mill/uL (4.7-6.1); RED CELL DISTRIBUTION WIDTH 18.1 % (11.6-14.6)
[2020-04-10] MEDS ORDERED: LIDOCAINE HCL/PF 1% 10 MG/ML 5ML VIAL ONE (08:21)
[2020-04-10] MEDS ORDERED: LIDOCAINE HCL 2% JELLY 5ML ONE (08:21)
[2020-04-10] MEDS ORDERED: EPHEDRINE SULFATE 50MG/ML VIAL ONE (08:22)
[2020-04-10] MEDS ORDERED: ONDANSETRON HCL 4MG/2ML INJ IV PRN (09:15)
[2020-04-10] MEDS ORDERED: MORPHINE SULFATE 2 MG/ML CPJ (NOT FOR IM USE) IV PRN (09:15)
[2020-04-10] MEDS ORDERED: SODIUM CHLORIDE 0.9% 1,000 ML IV SCH (09:15)
[2020-04-10] MEDS: HYDROMORPHONE HCL/PF 2MG/ML CPJ IV PRN ×2 (09:22→09:32)
[2020-04-10] MEDS: HYDROCODONE/ACETAMINOPHEN 5/325MG TABLET PO PRN ×2 (13:51→19:48)
[2020-04-10 20:00] VITALS: BP 151/95
[2020-04-10] MEDS: SODIUM CHLORIDE 0.9% 1,000 ML IV NR (20:18)
[2020-04-11] VITALS: BP 153/97
[2020-04-11] MEDS: AMPICILLIN 1,000 MG in SODIUM CHLORIDE 0.9% 50 ML IV SCH ×2 (03:25→09:09)
[2020-04-11 04:00] VITALS: BP 142/93
[2020-04-11] MEDS: PANTOPRAZOLE 40MG DR TABLET PO SCH ×2 (05:08→16:47)
[2020-04-11] MEDS: SODIUM CHLORIDE 0.9% 1,000 ML IV NR ×2 (05:13→13:15)
[2020-04-11] MEDS: HYDROCODONE/ACETAMINOPHEN 5/325MG TABLET PO PRN ×2 (05:13→09:59)
[2020-04-11] MEDS: INSULIN LISPRO 100 UNITS/ML SUBCUT SCH ×3 (07:00→16:20)
[2020-04-11 07:01] LABS: HEMATOCRIT. 26.6 % (42.0-52.0); HEMOGLOBIN. 8.5 g/dL (14.0-18.0); MEAN CORPUSCULAR HEMOGLOBIN 25.2 pg (28.0-32.0); MEAN CORPUSCULAR VOLUME 79.2 fL (80.0-94.0); MEAN PLATELET VOLUME 7.3 fl (7.4-10.4); PLATELET 318 x1000/uL (130-400); RED BLOOD CELL COUNT 3.36 mill/uL (4.7-6.1); RED CELL DISTRIBUTION WIDTH 17.8 % (11.6-14.6)
[2020-04-11] MEDS: BLOOD SUGAR DIAGNOSTIC STRIP TEST SCH ×3 (07:23→16:20)
[2020-04-11 08:00] VITALS: BP 143/83
[2020-04-11] MEDS: PIPERACILLIN/TAZOBACTAM 3.375 G in DEXT 5% WATER 100 ML IV SCH ×2 (13:15→21:17)
[2020-04-11] MEDS: HYDROCODONE/ACETAMINOPHEN 10/325MG TABLET PO PRN (14:32)
[2020-04-11 17:00] LABS: PLATELET ESTIMATE NORMAL
[2020-04-11 20:00] VITALS: BP 106/77
[2020-04-12] VITALS: BP 108/59
[2020-04-12] MEDS ORDERED: ONDANSETRON HCL 4MG TABLET PO PRN
[2020-04-12] MEDS ORDERED: CLONIDINE 0.1MG TABLET PO PRN
[2020-04-12] MEDS ORDERED: DEXTROSE 50% WATER 50ML SYRINGE IV PRN
[2020-04-12] MEDS ORDERED: MAGNESIUM/ALUMINUM HYDROXIDE/SIMETHICONE 30ML UDC PO PRN
[2020-04-12] MEDS: SODIUM CHLORIDE 0.9% 1,000 ML IV NR ×3 (01:18→21:32)
[2020-04-12] MEDS: PIPERACILLIN/TAZOBACTAM 3.375 G in DEXT 5% WATER 100 ML IV SCH ×4 (01:18→19:31)
[2020-04-12 04:00] VITALS: BP 107/68
[2020-04-12] MEDS: HYDROCODONE/ACETAMINOPHEN 10/325MG TABLET PO PRN ×2 (06:42→21:31)
[2020-04-12] MEDS: INSULIN LISPRO 100 UNITS/ML SUBCUT SCH ×4 (06:52→21:00)
[2020-04-12 08:00] VITALS: BP 126/84
[2020-04-12 08:43] LABS: BASOPHILS % 0.2 % (0.0-2.0); EOSINOPHILS % 1.5 % (0.0-5.0); HEMATOCRIT. 25.3 % (42.0-52.0); HEMOGLOBIN. 8.2 g/dL (14.0-18.0); LYMPHOCYTES % 9.2 % (20.0-50.0); MEAN CORPUSCULAR HEMOGLOBIN 25.5 pg (28.0-32.0); MEAN PLATELET VOLUME 7.5 fl (7.4-10.4); NEUTROPHILS % 79.1 % (40.0-76.0); PLATELET 310 x1000/uL (130-400)
[2020-04-12] MEDS: CYANOCOBALAMIN 1000MCG/ML VIAL IM SCH (09:00)
[2020-04-12] MEDS: ERGOCALCIFEROL 50000UNITS CAPSULE PO SCH (09:00)
[2020-04-12] MEDS: BLOOD SUGAR DIAGNOSTIC STRIP TEST SCH ×4 (10:00→21:32)
[2020-04-12 12:07] VITALS: BP 124/84
[2020-04-12 20:00] VITALS: BP 126/73
[2020-04-13] VITALS: BP 118/79
[2020-04-13] MEDS: ACETAMINOPHEN 325MG TABLET PO PRN (00:19)
[2020-04-13] MEDS: AMPICILLIN SOD/SULBACTAM NA 3 G in SODIUM CHLORIDE 0.9% 100 ML IV SCH ×4 (00:19→18:43)
[2020-04-13 04:00] VITALS: BP 145/88
[2020-04-13] MEDS: SODIUM CHLORIDE 0.9% 1,000 ML IV NR ×2 (06:28→18:44)
[2020-04-13] MEDS: INSULIN LISPRO 100 UNITS/ML SUBCUT SCH ×4 (06:28→21:00)
[2020-04-13] MEDS: BLOOD SUGAR DIAGNOSTIC STRIP TEST SCH ×4 (06:28→21:00)
[2020-04-13 07:33] LABS: BASOPHILS % 0.4 % (0.0-2.0); EOSINOPHILS % 1.9 % (0.0-5.0); HEMATOCRIT. 24.5 % (42.0-52.0); HEMOGLOBIN. 7.9 g/dL (14.0-18.0); LYMPHOCYTES % 10.2 % (20.0-50.0); MEAN CORPUSCULAR HEMOGLOBIN 25.6 pg (28.0-32.0); MEAN CORPUSCULAR VOLUME 79.7 fL (80.0-94.0); MEAN PLATELET VOLUME 7.2 fl (7.4-10.4); MONOCYTES % 11.9 % (2.0-8.0); NEUTROPHILS % 75.6 % (40.0-76.0); PLATELET 312 x1000/uL (130-400); RED BLOOD CELL COUNT 3.08 mill/uL (4.7-6.1); RED CELL DISTRIBUTION WIDTH 17.8 % (11.6-14.6)
[2020-04-13 08:13] VITALS: BP 142/84
[2020-04-13] MEDS: HYDROCODONE/ACETAMINOPHEN 10/325MG TABLET PO PRN ×2 (09:57→17:09)
[2020-04-13] MEDS ORDERED: VANCOMYCIN 1,750 MG in DEXT 5% WATER 250 ML IV NR (16:00)
[2020-04-13 20:00] VITALS: BP 121/81
[2020-04-14] VITALS: BP 137/87
[2020-04-14] MEDS: HYDROCODONE/ACETAMINOPHEN 10/325MG TABLET PO PRN ×2 (00:10→05:57)
[2020-04-14] MEDS: AMPICILLIN SOD/SULBACTAM NA 3 G in SODIUM CHLORIDE 0.9% 100 ML IV SCH ×4 (00:33→18:37)
[2020-04-14] MEDS: SODIUM CHLORIDE 0.9% 1,000 ML IV NR ×2 (03:15→12:51)
[2020-04-14 04:00] VITALS: BP 138/92
[2020-04-14] MEDS: INSULIN LISPRO 100 UNITS/ML SUBCUT SCH ×4 (07:00→21:00)
[2020-04-14 08:24] VITALS: BP 132/88
[2020-04-14] MEDS: BLOOD SUGAR DIAGNOSTIC STRIP TEST SCH ×4 (09:00→21:00)
[2020-04-14] MEDS: VANCOMYCIN 1 G PREMIX 200 ML IV SCH (10:23)
[2020-04-14 15:43] LABS: CHLORIDE 104 mEq/L (98-107)
[2020-04-14 20:00] VITALS: BP 152/99
[2020-04-15] VITALS: BP 155/105
[2020-04-15] MEDS: AMPICILLIN SOD/SULBACTAM NA 3 G in SODIUM CHLORIDE 0.9% 100 ML IV SCH ×4 (00:41→20:08)
[2020-04-15] MEDS: SODIUM CHLORIDE 0.9% 1,000 ML IV NR ×3 (00:42→20:19)
[2020-04-15] MEDS: HYDROCODONE/ACETAMINOPHEN 10/325MG TABLET PO PRN ×2 (00:53→16:35)
[2020-04-15] MEDS: VANCOMYCIN 1 G PREMIX 200 ML IV SCH (03:02)
[2020-04-15 04:00] VITALS: BP 140/99
[2020-04-15] MEDS: INSULIN LISPRO 100 UNITS/ML SUBCUT SCH ×4 (06:00→20:30)
[2020-04-15 06:42] LABS: BASOPHILS % 0.4 % (0.0-2.0); EOSINOPHILS % 2.4 % (0.0-5.0); HEMATOCRIT. 25.6 % (42.0-52.0); HEMOGLOBIN. 8.2 g/dL (14.0-18.0); LYMPHOCYTES % 13.2 % (20.0-50.0); MEAN CORPUSCULAR HEMOGLOBIN 25.4 pg (28.0-32.0); MEAN PLATELET VOLUME 7.2 fl (7.4-10.4); MONOCYTES % 10.8 % (2.0-8.0); NEUTROPHILS % 73.2 % (40.0-76.0); PLATELET 364 x1000/uL (130-400); RED BLOOD CELL COUNT 3.24 mill/uL (4.7-6.1)
[2020-04-15 07:02] LABS: CHLORIDE 106 mEq/L (98-107)
[2020-04-15 07:38] VITALS: BP 154/88
[2020-04-15] MEDS: BLOOD SUGAR DIAGNOSTIC STRIP TEST SCH ×4 (09:00→20:30)
[2020-04-15 12:00] VITALS: BP 163/90
[2020-04-15 16:00] VITALS: BP 153/93
[2020-04-15 20:00] VITALS: BP 151/93
[2020-04-15] MEDS: VANCOMYCIN 1250MG in DEXTROSE 5% WATER 250ML IV SCH (21:43)
[2020-04-16] VITALS (7 sets, daily range): BP systolic 137–184; BP diastolic 91–102
[2020-04-16] MEDS: AMPICILLIN SOD/SULBACTAM NA 3 G in SODIUM CHLORIDE 0.9% 100 ML IV SCH ×4 (01:32→19:43)
[2020-04-16] MEDS: SODIUM CHLORIDE 0.9% 1,000 ML IV NR ×2 (05:42→16:19)
[2020-04-16 06:16] LABS: CHLORIDE 106 mEq/L (98-107)
[2020-04-16] MEDS: INSULIN LISPRO 100 UNITS/ML SUBCUT SCH ×4 (06:39→20:31)
[2020-04-16] MEDS: BLOOD SUGAR DIAGNOSTIC STRIP TEST SCH ×4 (06:39→20:32)
[2020-04-16] MEDS: HYDROCODONE/ACETAMINOPHEN 10/325MG TABLET PO PRN (13:47)
[2020-04-16] MEDS: VANCOMYCIN 1250MG in DEXTROSE 5% WATER 250ML IV SCH (16:15)
[2020-04-16] MEDS: ACETAMINOPHEN 325MG TABLET PO PRN (20:33)
[2020-04-17] VITALS: BP 144/88
[2020-04-17] MEDS: AMPICILLIN SOD/SULBACTAM NA 3 G in SODIUM CHLORIDE 0.9% 100 ML IV SCH ×4 (00:01→18:18)
[2020-04-17] MEDS: SODIUM CHLORIDE 0.9% 1,000 ML IV NR (00:02)
[2020-04-17 04:00] VITALS: BP 158/100
[2020-04-17 06:28] LABS: BASOPHILS % 0.6 % (0.0-2.0); EOSINOPHILS % 2.4 % (0.0-5.0); HEMOGLOBIN. 8.9 g/dL (14.0-18.0); LYMPHOCYTES % 9.3 % (20.0-50.0); MEAN CORPUSCULAR HEMOGLOBIN 25.1 pg (28.0-32.0); MEAN CORPUSCULAR VOLUME 78.9 fL (80.0-94.0); MEAN PLATELET VOLUME 7.2 fl (7.4-10.4); MONOCYTES % 10.3 % (2.0-8.0); NEUTROPHILS % 77.4 % (40.0-76.0); PLATELET 356 x1000/uL (130-400); RED BLOOD CELL COUNT 3.54 mill/uL (4.7-6.1); RED CELL DISTRIBUTION WIDTH 17.7 % (11.6-14.6)
[2020-04-17] MEDS: ACETAMINOPHEN 325MG TABLET PO PRN ×2 (06:29→07:29)
[2020-04-17] MEDS: BLOOD SUGAR DIAGNOSTIC STRIP TEST SCH ×4 (06:31→21:00)
[2020-04-17] MEDS: INSULIN LISPRO 100 UNITS/ML SUBCUT SCH ×4 (06:31→21:00)
[2020-04-17 08:26] VITALS: BP 145/93
[2020-04-17] MEDS: VANCOMYCIN 1250MG in DEXTROSE 5% WATER 250ML IV SCH (11:05)
[2020-04-17 20:00] VITALS: BP_SYST 140; BP_SYST 143; BP_DIAS 97
[2020-04-18] VITALS: BP 143/97
[2020-04-18] MEDS: AMPICILLIN SOD/SULBACTAM NA 3 G in SODIUM CHLORIDE 0.9% 100 ML IV SCH ×4 (02:31→18:05)
[2020-04-18] MEDS: VANCOMYCIN 1 G PREMIX 200 ML IV SCH ×2 (06:02→23:49)
[2020-04-18 06:22] LABS: BASOPHILS % 0.4 % (0.0-2.0); HEMATOCRIT. 27.4 % (42.0-52.0); HEMOGLOBIN. 8.9 g/dL (14.0-18.0); LYMPHOCYTES % 9.7 % (20.0-50.0); MEAN CORPUSCULAR HEMOGLOBIN 25.6 pg (28.0-32.0); MEAN CORPUSCULAR VOLUME 78.7 fL (80.0-94.0); MONOCYTES % 9.3 % (2.0-8.0); NEUTROPHILS % 78.6 % (40.0-76.0); PLATELET 359 x1000/uL (130-400); RED BLOOD CELL COUNT 3.48 mill/uL (4.7-6.1); RED CELL DISTRIBUTION WIDTH 18.3 % (11.6-14.6)
[2020-04-18] MEDS: INSULIN LISPRO 100 UNITS/ML SUBCUT SCH ×4 (07:00→21:00)
[2020-04-18 08:00] VITALS: BP 163/95
[2020-04-18] MEDS: BLOOD SUGAR DIAGNOSTIC STRIP TEST SCH ×4 (09:40→21:00)
[2020-04-18 12:03] VITALS: BP 145/99
[2020-04-18 16:00] VITALS: BP 158/91
[2020-04-18] MEDS: ACETAMINOPHEN 325MG TABLET PO PRN (17:24)
[2020-04-18 23:00] VITALS: BP 149/87
[2020-04-19] MEDS: AMPICILLIN SOD/SULBACTAM NA 3 G in SODIUM CHLORIDE 0.9% 100 ML IV SCH ×3 (01:39→12:17)
[2020-04-19] MEDS: INSULIN LISPRO 100 UNITS/ML SUBCUT SCH ×3 (06:42→17:06)
[2020-04-19 07:13] VITALS: BP 166/57
[2020-04-19] MEDS: CYANOCOBALAMIN 1000MCG/ML VIAL IM SCH (08:38)
[2020-04-19] MEDS: ERGOCALCIFEROL 50000UNITS CAPSULE PO SCH (08:38)
[2020-04-19] MEDS: BLOOD SUGAR DIAGNOSTIC STRIP TEST SCH ×3 (08:47→16:49)
[2020-04-19 14:24] VITALS: BP 156/93
== END 2020-04-19 17:30 | DRG 856 ==
LOC: 4WST 14:25
PROVIDERS: ADMIT Internal Medicine; ATTEND Internal Medicine
PROC: 0HBRXZZ Excision of Toe Nail, External Approach (ICD-10-PCS; 2020-03-24)
PROC: 0HBRXZZ Excision of Toe Nail, External Approach (ICD-10-PCS; 2020-03-24)
PROC: 0HBRXZZ Excision of Toe Nail, External Approach (ICD-10-PCS; 2020-03-24)
PROC: 0HBRXZZ Excision of Toe Nail, External Approach (ICD-10-PCS; 2020-03-24)
PROC: 0HBRXZZ Excision of Toe Nail, External Approach (ICD-10-PCS; 2020-03-24)
PROC: 0HBRXZZ Excision of Toe Nail, External Approach (ICD-10-PCS; 2020-03-24)
PROC: 02HV33Z Insertion of Infusion Device into Superior Vena Cava, Percutaneous Approach (ICD-10-PCS; 2020-04-07)
PROC: B548ZZA Ultrasonography of Superior Vena Cava, Guidance (ICD-10-PCS; 2020-04-07)
PROC: 0Y950ZZ Drainage of Right Inguinal Region, Open Approach (ICD-10-PCS; principal; 2020-04-10)
PROC: 0H9KXZZ Drainage of Right Lower Leg Skin, External Approach (ICD-10-PCS; 2020-04-10)
DX: T81.41XA Infection following a procedure, superficial incisional surgical site, initial encounter (principal); K57.91 Diverticulosis of intestine, part unspecified, without perforation or abscess with bleeding; E43 Unspecified severe protein-calorie malnutrition; G93.41 Metabolic encephalopathy; L02.415 Cutaneous abscess of right lower limb; E87.0 Hyperosmolality and hypernatremia; I82.402 Acute embolism and thrombosis of unspecified deep veins of left lower extremity; N17.9 Acute kidney failure, unspecified; N39.0 Urinary tract infection, site not specified; R47.01 Aphasia; I69.351 Hemiplegia and hemiparesis following cerebral infarction affecting right dominant side; I13.0 Hypertensive heart and chronic kidney disease with heart failure and stage 1 through stage 4 chronic kidney disease, or unspecified chronic kidney disease; K91.841 Postprocedural hemorrhage of a digestive system organ or structure following other procedure; K80.20 Calculus of gallbladder without cholecystitis without obstruction; D64.9 Anemia, unspecified; E86.0 Dehydration; N18.30 Chronic kidney disease, stage 3 unspecified; B96.5 Pseudomonas (aeruginosa) (mallei) (pseudomallei) as the cause of diseases classified elsewhere; I50.9 Heart failure, unspecified; E61.1 Iron deficiency; E78.5 Hyperlipidemia, unspecified; E87.6 Hypokalemia; I25.10 Atherosclerotic heart disease of native coronary artery without angina pectoris; R13.10 Dysphagia, unspecified; R53.81 Other malaise; R47.1 Dysarthria and anarthria; R25.2 Cramp and spasm; E53.8 Deficiency of other specified B group vitamins; E11.22 Type 2 diabetes mellitus with diabetic chronic kidney disease; E11.65 Type 2 diabetes mellitus with hyperglycemia; E55.9 Vitamin D deficiency, unspecified; L60.3 Nail dystrophy; B35.1 Tinea unguium; L60.0 Ingrowing nail; Z20.822 Contact with and (suspected) exposure to COVID-19; Z86.718 Personal history of other venous thrombosis and embolism; Z95.828 Presence of other vascular implants and grafts; Z72.0 Tobacco use; Z79.899 Other long term (current) drug therapy; Z79.4 Long term (current) use of insulin; Z82.49 Family history of ischemic heart disease and other diseases of the circulatory system; Z68.26 Body mass index [BMI] 26.0-26.9, adult
CPT/HCPCS: 36415; 71045; 73700; 76937; 80048; 80053; 80202; 82040; 82140; 82306; 82962; 83036; 83735; 84100; 84134; 85025; 86850; 86900; 87070; 87075; 87077; 87186; 87426; 92523; 92610; 97110; 97112; 97162; 97164; 97166; 97168; 97530; 97535; A6261; C1725; C1769; C1893; C9113; J0290; J0295; J1170; J1815; J2250; J2270; J2543; J2704; J3010; J3370; J3420; J3490; J7030; J7040; J7050; J7060; L1830; Q9967; A4315